=== PATIENT | female | born 1980 | race Caucasian/White ===

== ENCOUNTER 2017-08-17 12:53 | Emergency (ER) | payer BC, OTHER ==
[~2017-08-17] VITALS: Ht 144.8 cm; Wt 53.5 kg
[~2017-08-17 12:53] MED LIST: ALBUTEROL INH; AMOXICILLIN 50500 M1 PO; BIOTIN1 M1 PO; CALCIUM500 M1 PO; CIPROFLOXACIN500 M1 PO; CITRATE OF MAG296 ML PO; COLACE100 MG PO; DEPO-ESTRAD5 MG/1 ML; DEPO-PROVERA; FLONASE 0.05%50 MCG NASAL; LEVAQUIN 750 M750 MG PO; MUCOSA400 MG PO; NASONEX17 GM NS; NORCO 5-325 TA1 EACH PO; ONE-A-DAY WOMENS PO; PANTOPRAZOLE SO40 MG PO; PROTONIX40 MG PO; SENNA PO; VICODIN PO; ZOFRAN ODT4 MG PO; ZOFRAN4 MG PO; ZPAK PO
[2017-08-17 13:36] LABS: BASOPHILS 0.5 % (0.0-2.0); EOSINOPHILS 0.2 % (0.0-3.0); HEMATOCRIT 33.6 % (37.0-47.0); HEMOGLOBIN 11.1 gm/dL (12.0-15.0); LYMPHOCYTES 14.5 % (24.0-44.0); MCH 24.8 pg (26.0-34.0); MCHC 32.9 g/dL (28.0-37.0); MCV 75.4 fL (80.0-100.0); MONOCYTES 11.3 % (1.0-8.0); PLATELET COUNT 266 thou/uL (150-400); POLYS 73.5 % (36.0-66.0); RBC 4.46 mil/uL (4.20-5.00); RDW 17.6 % (10.5-14.5); WBC 8.1 thou/uL (4.0-11.0)
[2017-08-17 13:40] LABS: CALCIUM 9.1 mg/dL (8.5-10.1); CREATININE 0.7 mg/dL (0.6-1.0); POTASSIUM 3.3 mmol/L (3.5-5.1)
[2017-08-17 13:46] LABS: ALBUMIN 3.5 g/dL (3.4-5.0); DIRECT BILIRUBIN 0.2 mg/dL (<0.1-0.3); TOTAL PROTEIN 7.7 g/dL (6.4-8.2)
[2017-08-17 14:38] LABS: URINE BLOOD 3+ (Negative); URINE COLOR YELLOW; URINE GLUCOSE-RANDOM* NEGATIVE (Negative); URINE KETONES 3+ (Negative); URINE LEUKOCYTES-REFLEX NEGATIVE (Negative); URINE NITRITE-REFLEX NEGATIVE (Negative); URINE PROTEIN (DIPSTICK) 1+ (Negative); URINE SPECIFIC GRAVITY >= 1.030 (1.005-1.035); URINE UROBILINOGEN 0.2 E.U./dl (0.2-1.0)
[2017-08-17 14:40] LABS: ICTOTEST (BILI CONFIRMATORY) Negative (Negative); URINE BILIRUBIN NEGATIVE (Negative); URINE CLARITY CLOUDY
[2017-08-17 14:52] LABS: AMORPHOUS URATES Moderate /LPF (None Seen); BACTERIA-REFLEX 1-9 Few /HPF (None Seen); CASTS None Seen /LPF (None Seen); SQUAMOUS 0-3 Few /LPF (0-3); URINE RBC 3-10 Few /HPF (0-2); URINE WBC-REFLEX None Seen /HPF (0-5)
[2017-08-17] MEDS ORDERED: ULTRAM50 MG PO (17:31)
[2017-08-17] MEDS ORDERED: ZOFRAN ODT4 MG PO (17:31)
[2017-08-17 18:09] VITALS: BP 104/54
== END 2017-08-17 18:10 | disposition home or self-care (01) ==
LOC: ER 12:53
PROVIDERS: Emergency Medicine
DX: N83.201 Unspecified ovarian cyst, right side (principal); J45.909 Unspecified asthma, uncomplicated; G43.909 Migraine, unspecified, not intractable, without status migrainosus; Z88.8 Allergy status to other drugs, medicaments and biological substances

== ENCOUNTER 2017-08-21 13:47 | Inpatient (IN) | payer BC, OTHER ==
[~2017-08-21] VITALS: Ht 144.8 cm; Wt 50.0 kg
--- NOTE | ~2017-08-21 | H ---
[facility] [place] [address] HISTORY AND PHYSICAL Name: TINY PEÑA KRISHNA Room #: 450-P ADM IN M.R.#: [id number] Admission: 08/21/17 Attend Phys: Jose Eduardo Napoles MD Discharge: Date of : 84 Report #: [id number] THIS REPORT FOR: //name// CC: CRISTI physician/PCP NO PCP Jose Eduardo Napoles DATE OF SERVICE: 08/21/2017 HISTORY OF PRESENT ILLNESS: A 36-year-old white female 15, para 1, AB 14, last menstrual period 08/14/2017. The patient presented to the office on 08/21/2017, referred from the Emergency Room where she was seen on 08/17/2017 with a chief complaint of lower abdominal pain since 08/14, now involving most of her abdomen. She also complained of nausea, decreased appetite, fever and vomiting. She was referred from [facility] to the Emergency Room by her nurse practitioner to rule out appendicitis. The pain had been 10/10 on pain scale in the Emergency Room, but today was 7/10. The patient reports fever of 101 degrees at home on 08/16/2017, but had not been checking her temperature since then. She is feeling less hot at the time of admission. She has had no emesis since 08/17/2017, but her appetite has remained poor. Lab work at the Emergency Room on 08/17 showed a potassium of 3.3. Serum beta hCG test was negative. CBC showed a white count of 8.1, hemoglobin 11.1, platelets 266,000. CT scan of the abdomen and pelvis showed large cysts and cystic areas of complex areas in both adnexa, greater on the right. There were large cysts versus hydrosalpinx versus PID in the differential diagnosis. Ovarian tumor was considered less likely. They also visualized mildly enlarged mesenteric lymph nodes. An ultrasound scan that day showed an abnormal left ovary, poorly defined borders and diffuse heterogenicity concerning for a left ovarian mass measuring 4.4 x 4.3 x 3.5 cm. There was also a right ovarian complex hemorrhagic cyst measuring 6 x 5 cm. There was a right ovarian simple cyst measuring 6 x 4 cm. There was blood flow present bilaterally. The patient's menstrual history was 14 years x 14-28 days x 7 days. She has had no gynecologic surgery, and she is not using any control. She has had a history of severe dysmenorrhea, growing worse over the years and heavy menses. PAST MEDICAL HISTORY: ALLERGIES: PSEUDOEPHEDRINE HYDROCHLORIDE. MEDICATIONS: Multivitamins. ILLNESSES AND DISEASES: Irritable bowel syndrome, Sampson syndrome, migraine headaches, asthma, borderline personality disorder. [address] [address] HISTORY AND PHYSICAL Name: TINY PEÑA [facility] Room #: 450-P ADM IN M.R.#: [id number] Admission: 08/21/17 Attend Phys: Jose Eduardo Napoles MD Discharge: Date of : 84 Report #: [id number] PAST SURGICAL HISTORY: Bilateral inguinal hernia repair at 8 weeks of age. Laparoscopic cholecystectomy in 2010, history of tonsillectomy and adenoids. SOCIAL HISTORY: She is a former smoker who quit smoking in 2009. She does not drink. She denies drug use. She is living with the father of the baby, but her last intercourse was 2 years ago. Her occupation, she is a [employer] manager. REVIEW OF SYSTEMS: PSYCHIATRIC: Borderline personality disorder. No depression. NEUROLOGIC: No vision changes. GASTROINTESTINAL: She is vomiting. GENITOURINARY: Dysmenorrhea and heavy menses. CARDIAC: None. PULMONARY: Breathing easily. SKIN: No lesions. MUSCULOSKELETAL: No pain in her extremities. PHYSICAL EXAMINATION: GENERAL: This is a middle-aged white female, in no acute distress, alert and oriented x 3. VITAL SIGNS: Height 4 feet 9 inches tall, weight 111 pounds, body mass index 24.0. HEAD, EYES, EARS, NOSE AND THROAT: Within normal limits. HEART: Regular rhythm and rate. LUNGS: Clear. BREASTS: No masses. NECK: Normal. ABDOMEN: Normal bowel sounds, soft, nondistended. LYMPHATICS: Normal. Mons pubis normal. Labia normal. GENITOURINARY: Perineum normal. Anus normal. Vagina, no lesions. Cervix purulent discharge. Moderately tender uterus, moderately tender right adnexa and left adnexa, both markedly tender but nonpalpable. EXTREMITIES: Nontender. ASSESSMENT: Bilateral adnexal masses with pain, fever, nausea, poor appetite, somewhat improved since her Emergency Room visit 08/17/2017. Differential diagnosis includes 6 cm right hemorrhagic ovarian cyst with a 6 cm right simple cyst, possible abnormal left ovary, pelvic inflammatory disease versus tumor, consider endometriosis and endometrioma. PLAN: 1. Admit for parenteral antibiotics and repeat pelvic ultrasound scan. 2. Gonorrhea and chlamydia testing was performed from the clinic today. 3. CBC, comprehensive metabolic profile and blood cultures x 2. [facility] [address] [place] [address] HISTORY AND PHYSICAL Name: TINY PEÑA Room #: 450-P ADM IN M.R.#: [id number] Admission: 08/21/17 Attend Phys: Jose Eduardo Napoles MD Discharge: Date of : 84 Report #: [id number] 4. Vital signs q.8 hours. 5. Daily intake and output and weight. <ELECTRONICALLY SIGNED> By: Jose Eduardo Napoles MD 08/23/17 1510 1615 1652 Jose Eduardo Napoles MD /nt
--- NOTE | ~2017-08-21 | EKG ---
[address] [place] [place] [address] ELECTROCARDIOGRAM REPORT Name: TINY PEÑA Room #: 450- DIS IN M.R.#: [id number] Admission: 08/21/17 Attend Phys: Jose Eduardo Napoles MD Discharge: 08/24/17 Date of : 84 Report #: [id number] THIS REPORT FOR: //name// [facility] Test Date: 2017-08-24 Test Time: 09:11:34 Pat Name: TINY PEÑA Department: Room: 450 P Gender: F Change Lead: Daisy CHU : 1980 Requested By: Devin Wilson Order Number: [id number] MD: Charles Davidson Measurements Intervals [place] Rate: 82 P: 46 ND: 127 QRS: 64 QRSD: 79 T: 32 QT: 407 QTc: 476 Interpretive Statements Sinus rhythm Low voltage, extremity and precordial leads Borderline prolonged QT interval Compared to ECG 12/02/2008 11:14:49 Sinus tachycardia no longer present Electronically Signed On 08-25-2017 11:02:23 CDT by Charles Davidson [email or web address] <ELECTRONICALLY SIGNED> By: Charles Davidson MD 08/25/17 1102 0 Charles Davidson MD /[facility]
[~2017-08-21 13:47] MED LIST changes: +ULTRAM50 MG PO
[2017-08-21 16:00] VITALS: BP 111/67
[2017-08-21 16:44] LABS: ABSOLUTE NEUTROPHILS 3.8 thou/uL (1.4-8.2); BASOPHILS 0.8 % (0.0-2.0); EOSINOPHILS 0.6 % (0.0-3.0); HEMOGLOBIN 10.5 gm/dL (12.0-15.0); LYMPHOCYTES 24.9 % (24.0-44.0); MCH 24.8 pg (26.0-34.0); MCHC 32.6 g/dL (28.0-37.0); MCV 76.1 fL (80.0-100.0); MONOCYTES 6.6 % (1.0-8.0); PLATELET COUNT 375 thou/uL (150-400); POLYS 67.1 % (36.0-66.0); RBC 4.21 mil/uL (4.20-5.00); RDW 16.9 % (10.5-14.5); WBC 5.6 thou/uL (4.0-11.0)
[2017-08-21 16:58] LABS: CALCIUM 9.1 mg/dL (8.5-10.1); CREATININE 0.7 mg/dL (0.6-1.0); POTASSIUM 3.6 mmol/L (3.5-5.1)
[2017-08-21 17:03] LABS: ALBUMIN 3.4 g/dL (3.4-5.0); TOTAL BILIRUBIN 0.4 mg/dL (<0.1-1.0)
[2017-08-21 19:15] VITALS: BP 102/58
[2017-08-22 00:28] VITALS: BP 103/64
[2017-08-22 04:52] VITALS: BP 166/57
[2017-08-22 07:25] VITALS: BP 92/62
[2017-08-22 15:39] VITALS: BP 102/40
[2017-08-22 18:59] VITALS: BP 101/66
[2017-08-23 04:16] VITALS: BP 87/49
[2017-08-23 08:00] VITALS: BP 97/58
[2017-08-23 15:28] LABS: ABSOLUTE NEUTROPHILS 4.4 thou/uL (1.4-8.2); BASOPHILS 0.4 % (0.0-2.0); EOSINOPHILS 1.7 % (0.0-3.0); HEMATOCRIT 32.4 % (37.0-47.0); HEMOGLOBIN 10.5 gm/dL (12.0-15.0); MCH 24.9 pg (26.0-34.0); MCHC 32.5 g/dL (28.0-37.0); MCV 76.7 fL (80.0-100.0); MONOCYTES 6.5 % (1.0-8.0); PLATELET COUNT 336 thou/uL (150-400); POLYS 64.4 % (36.0-66.0); RBC 4.23 mil/uL (4.20-5.00); RDW 17.4 % (10.5-14.5); WBC 6.9 thou/uL (4.0-11.0)
[2017-08-23 15:47] VITALS: BP 107/60
[2017-08-23 16:07] LABS: URINE BILIRUBIN NEGATIVE (Negative); URINE BLOOD NEGATIVE (Negative); URINE CLARITY CLEAR; URINE COLOR YELLOW; URINE GLUCOSE-RANDOM* NEGATIVE (Negative); URINE KETONES NEGATIVE (Negative); URINE LEUKOCYTES-REFLEX NEGATIVE (Negative); URINE NITRITE-REFLEX NEGATIVE (Negative); URINE PROTEIN (DIPSTICK) NEGATIVE (Negative); URINE UROBILINOGEN 0.2 E.U./dl (0.2-1.0)
[2017-08-23 19:48] VITALS: BP 110/70
[2017-08-23 20:00] VITALS: BP 119/58
[2017-08-24 05:34] VITALS: BP 86/48
[2017-08-24 07:23] VITALS: BP 99/53
[2017-08-24 10:13] LABS: HEMATOCRIT 29.8 % (37.0-47.0); HEMOGLOBIN 9.8 gm/dL (12.0-15.0); MCH 25.1 pg (26.0-34.0); MCV 76.1 fL (80.0-100.0); RBC 3.92 mil/uL (4.20-5.00); RDW 17.4 % (10.5-14.5); WBC 4.4 thou/uL (4.0-11.0)
[2017-08-24 10:31] LABS: ALBUMIN 2.9 g/dL (3.4-5.0); ANION GAP 8 mmol/L (7-16); BUN 4 mg/dL (7-18); CALCIUM 9.1 mg/dL (8.5-10.1); CHLORIDE 109 mmol/L (98-107); CO2 27 mmol/L (21-32); CREATININE 0.7 mg/dL (0.6-1.0); GLUCOSE 89 mg/dL (74-106); MAGNESIUM 1.9 mg/dL (1.8-2.4); POTASSIUM 3.7 mmol/L (3.5-5.1); SGOT 68 U/L (15-37); SGPT 72 U/L (30-65); SODIUM 144 mmol/L (136-145); TOTAL BILIRUBIN 0.5 mg/dL (<0.1-1.0); TOTAL PROTEIN 5.8 g/dL (6.4-8.2); TROPONIN-I <0.06 ng/mL (<0.06)
[2017-08-24] MEDS ORDERED: ANTIVERT25 MG PO (14:11)
[2017-08-24] MEDS ORDERED: ONDANSETRON HCL4 M1 IV PUSH (14:12)
[2017-08-24] MEDS ORDERED: ONDANSETRON HCL4 M2 PO (14:15)
[2017-08-24] MEDS ORDERED: FAMOTIDINE20 MG/2 M2 IV PUSH (14:16)
== END 2017-08-24 15:45 | disposition short-term general hospital (02) | DRG 758 ==
LOC: 4W 13:47 → ENTRNSPT 08-24 15:17 → EDTRNSPTSTS 08-24 15:20 → 4W 08-24 15:45
PROVIDERS: Internal Medicine; Obstetrics & Gynecology
DX: N73.9 Female pelvic inflammatory disease, unspecified (principal); A54.9 Gonococcal infection, unspecified; D64.9 Anemia, unspecified; N94.6 Dysmenorrhea, unspecified; H66.90 Otitis media, unspecified, unspecified ear; N83.8 Other noninflammatory disorders of ovary, fallopian tube and broad ligament; N83.291 Other ovarian cyst, right side; Z79.899 Other long term (current) drug therapy
CPT/HCPCS: 10047